=== PATIENT | female | born 1980 | race Caucasian/White ===

== ENCOUNTER 2017-11-11 12:10 | Inpatient (IN) | payer SELFPAY ==
[~2017-11-11] VITALS: Ht 157.5 cm; Wt 56.3 kg
[~2017-11-11 12:10] MED LIST: IBUP800T23 PO; METH750T2 PO
[2017-11-11 12:17] VITALS: BP 113/61; PULSE 120; RESP 18; TEMP 98.3; O2SAT 99
--- NOTE | 2017-11-11 12:27 | PD ---
HPI Chief Complaint: Psychiatric Symptoms Time Seen by Provider: 12:22 Travel History International Travel<30 days: No Contact w/Intl Traveler<30days: No Traveled to known affect area: No History of Present Illness HPI 37-year-old female presents to the emergency department under [place] act by local police. The patient states her name is Hellen Kingston". 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 She is alert and oriented to person, place, time. According the [place]ar act, she has been having bizarre behavior and threatening people. The patient states that her is with the neighbor next door and she wants him out which is why she has been acting the way she has. She denies any psychiatric history. She denies any suicidal or homicidal ideation. The patient is agitated and does not want to answer questions. She does deny any medical complaints at this time. She reports history of diabetes, states she is not on any medications. She denies any alcohol or drug use. She does state that she smokes "a lot". Moderate severity. PFSH Past Medical History Immunizations Current: Yes ?: Unknown Social History Alcohol Use: No Tobacco Use: Yes Substance Use: No Allergies-Medications (Allergen,Severity, Reaction): Coded Allergies: No Known Allergies (Unverified , 08/09/15) Reported Meds & Prescriptions Reported Meds & Active Scripts Active No Active Prescriptions or Reported Medications Review of Systems Except as stated in HPI: all other systems reviewed are Neg Physical Exam Narrative GENERAL: Well-nourished, well-developed female patient, ambulatory. Afebrile. SKIN: Focused skin assessment warm/dry. HEAD: Normocephalic. Atraumatic. EYES: No scleral icterus. No injection or drainage. NECK: Supple, trachea midline. No JVD or lymphadenopathy. CARDIOVASCULAR: Regular rhythm without murmurs, gallops, or rubs. Patient is tachycardic heart rate in the 110s. RESPIRATORY: Breath sounds equal bilaterally. No accessory muscle use. Lung sounds are clear to auscultation. GASTROINTESTINAL: Abdomen soft, non-tender, nondistended. MUSCULOSKELETAL: No cyanosis, or edema. PSYCHIATRIC: No hallucinations. 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 Otherwise , she answers questions appropriately. She does appear possibly under the influence. Data Data Last Documented VS Vital Signs Date Time Temp Pulse Resp B/P (MAP) Pulse Ox O2 Delivery O2 Flow Rate FiO2 11/11/17 13:54 117 11/11/17 12:17 98.3 18 113/61 (78) 99 Orders Orders Complete Blood Count With Diff (11/11/17 12:23) Comprehensive Metabolic Panel (11/11/17 12:23) Thyroid Stimulating Hormone (11/11/17 12:23) Ed Urine Pregnancytest Poc (11/11/17 12:23) Psych Screen (11/11/17 12:23) Drug Screen, Random Urine (11/11/17 12:23) Alcohol (Ethanol) (11/11/17 12:23) Labs Laboratory Tests Test 11/11/17 12:30 White Blood Count 11.8 TH/MM3 Red Blood Count 4.97 MIL/MM3 Hemoglobin 12.8 GM/DL Hematocrit 39.3 % Mean Corpuscular Volume 79.2 FL Mean Corpuscular Hemoglobin 25.8 PG Mean Corpuscular Hemoglobin Concent 32.6 % Red Cell Distribution Width 16.5 % Platelet Count 264 TH/MM3 Mean Platelet Volume 7.7 FL Neutrophils (%) (Auto) 84.9 % Lymphocytes (%) (Auto) 6.1 % Monocytes (%) (Auto) 8.0 % Eosinophils (%) (Auto) 0.4 % Basophils (%) (Auto) 0.6 % Neutrophils # (Auto) 10.0 TH/MM3 Lymphocytes # (Auto) 0.7 TH/MM3 Monocytes # (Auto) 0.9 TH/MM3 Eosinophils # (Auto) 0.1 TH/MM3 Basophils # (Auto) 0.1 TH/MM3 CBC Comment DIFF FINAL Differential Comment Blood Urea Nitrogen 9 MG/DL Creatinine 1.03 MG/DL Random Glucose 91 MG/DL Total Protein 8.1 GM/DL Albumin 4.3 GM/DL Calcium Level 9.2 MG/DL Alkaline Phosphatase 93 U/L Aspartate Amino Transf (AST/SGOT) 20 U/L Alanine Aminotransferase (ALT/SGPT) 18 U/L Total Bilirubin 0.6 MG/DL Sodium Level 136 MEQ/L Potassium Level 4.0 MEQ/L Chloride Level 103 MEQ/L Carbon Dioxide Level 20.5 MEQ/L Anion Gap 13 MEQ/L Estimat Glomerular Filtration Rate 60 ML/MIN Thyroid Stimulating Hormone 3rd Gen 0.933 uIU/ML Ethyl Alcohol Level LESS THAN 3 MG/DL MDM Medical Decision Making Medical Screen Exam Complete: Yes Emergency Medical Condition: Yes Medical Record Reviewed: Yes Differential Diagnosis Substance abuse versus bipolar disorder versus depression versus anxiety versus schizophrenia Narrative Course 37-year-old female presents to the emergency department under [place] act by local police. CBC, CMP, TSH, alcohol level, urine drug screen, urine test are ordered and pending. CBC shows slight leukocytosis 11.8. CMP shows no acute abnormality. TSH is 0.933. Alcohol level is less than 3. UDS, UPT are pending. Patient remains slightly tachycardic. Patient remains agitated. I do believe the tachycardia is due to agitation. Patient is medically cleared for psychiatric screening and disposition Diagnosis Primary Impression: Medical clearance for psychiatric admission Scripts No Active Prescriptions or Reported Meds Condition: Stable Micheline Caputo November 11, 2017 12:27
[2017-11-11 12:59] LABS: BASOPHIL # 0.1 TH/MM3 (0-0.2); BASOPHIL % 0.6 % (0.0-2.0); EOSINOPHIL # 0.1 TH/MM3 (0-0.4); EOSINOPHIL % 0.4 % (0.0-4.0); HEMATOCRIT 39.3 % (35.0-46.0); HEMOGLOBIN 12.8 GM/DL (11.6-15.3); LYMPH % 6.1 % (9.0-44.0); LYMPHOCYTE # 0.7 TH/MM3 (1.0-4.8); MEAN CELL VOLUME 79.2 FL (80.0-100.0); MEAN CORPUSCULAR HEMOGLOBIN 25.8 PG (27.0-34.0); MEAN CORPUSCULAR HGB CONC 32.6 % (32.0-36.0); MEAN PLATELET VOLUME 7.7 FL (7.0-11.0); MONOCYTE # 0.9 TH/MM3 (0-0.9); NEUT % 84.9 % (16.0-70.0); PLATELET COUNT 264 TH/MM3 (150-450); RED BLOOD COUNT 4.97 MIL/MM3 (4.00-5.30); RED CELL DISTRIBUTION WIDTH 16.5 % (11.6-17.2); WHITE BLOOD COUNT 11.8 TH/MM3 (4.0-11.0)
[2017-11-11 13:28] LABS: BLOOD UREA NITROGEN 9 MG/DL (7-18); CREATININE 1.03 MG/DL (0.50-1.00); GLOMERULAR FILTRATION RATE 60 ML/MIN (>89); GLUCOSE,RANDOM 91 MG/DL (74-106)
[2017-11-11 13:29] LABS: ALBUMIN 4.3 GM/DL (3.4-5.0); ALKALINE PHOSPHATASE 93 U/L (45-117); ALT (GPT) 18 U/L (10-53); AST (GOT) 20 U/L (15-37); BICARBONATE 20.5 MEQ/L (21.0-32.0); CALCIUM 9.2 MG/DL (8.5-10.1); CHLORIDE 103 MEQ/L (98-107); SODIUM (NA) 136 MEQ/L (136-145); TOTAL BILIRUBIN ADULT 0.6 MG/DL (0.2-1.0); TOTAL PROTEIN 8.1 GM/DL (6.4-8.2)
[2017-11-11 13:54] VITALS: PULSE 117
[2017-11-11 19:29] VITALS: BP 107/62; PULSE 128; TEMP 98.2; O2SAT 98
[2017-11-11] MEDS ORDERED: LORazepam 2 MG/ML VIAL IM ONE (21:00)
[2017-11-11] MEDS ORDERED: HALOPERIDOL LACTATE 5 MG/ML AMP IM ONE (21:00)
[2017-11-12 00:38] VITALS: BP 110/60; PULSE 84; RESP 18; TEMP 97
[2017-11-12 08:40] VITALS: BP 114/65; PULSE 102; RESP 20; TEMP 97.9; O2SAT 96
[2017-11-12] MEDS ORDERED: BENZTROPINE MESYLATE 2 MG/2 ML VIAL IM PRN (11:30)
[2017-11-12] MEDS ORDERED: MAGNESIUM HYDROXIDE SUSP 30 ML CUP PO PRN (11:30)
[2017-11-12] MEDS ORDERED: ALUMINUM/MAGNESIUM/SIMETH 30 ML CUP PO PRN (11:30)
[2017-11-12] MEDS ORDERED: BENZTROPINE MESYLATE 1 MG TAB PO PRN (11:30)
[2017-11-12] MEDS ORDERED: diphenhydrAMINE HCL 50 MG CAP PO PRN (11:30)
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
[2017-11-12 13:23] VITALS: BP 90/55; PULSE 92; RESP 18; TEMP 97.3; O2SAT 100
[2017-11-13 05:59] VITALS: PULSE 81; RESP 17; TEMP 98; O2SAT 98
[2017-11-13] MEDS: REMOVE OLD PATCH T-DERMAL SCH ×2 (08:10→08:19)
[2017-11-13] MEDS: NICOTINE 21 MG/24 HR PATCH T-DERMAL SCH (08:18)
[2017-11-13 09:28] LABS: AUTOMATED NEUTROPHIL # 4.5 TH/MM3 (1.8-7.7); BASOPHIL # 0.1 TH/MM3 (0-0.2); BASOPHIL % 1.2 % (0.0-2.0); EOSINOPHIL # 0.2 TH/MM3 (0-0.4); EOSINOPHIL % 3.5 % (0.0-4.0); HEMATOCRIT 39.2 % (35.0-46.0); LYMPH % 15.7 % (9.0-44.0); MEAN CELL VOLUME 80.2 FL (80.0-100.0); MEAN CORPUSCULAR HEMOGLOBIN 26.6 PG (27.0-34.0); MEAN CORPUSCULAR HGB CONC 33.2 % (32.0-36.0); MEAN PLATELET VOLUME 7.6 FL (7.0-11.0); MONO % 8.2 % (0.0-8.0); MONOCYTE # 0.5 TH/MM3 (0-0.9); NEUT % 71.4 % (16.0-70.0); PLATELET COUNT 245 TH/MM3 (150-450); RED BLOOD COUNT 4.89 MIL/MM3 (4.00-5.30); RED CELL DISTRIBUTION WIDTH 16.4 % (11.6-17.2); WHITE BLOOD COUNT 6.3 TH/MM3 (4.0-11.0)
[2017-11-13] MEDS: ACETAMINOPHEN 325 MG TAB PO PRN ×2 (09:46→18:47)
[2017-11-13 09:52] LABS: BICARBONATE 28.2 MEQ/L (21.0-32.0); BLOOD UREA NITROGEN 15 MG/DL (7-18); CALCIUM 8.7 MG/DL (8.5-10.1); CHLORIDE 104 MEQ/L (98-107); CREATININE 0.81 MG/DL (0.50-1.00); GLOMERULAR FILTRATION RATE 79 ML/MIN (>89); GLUCOSE,RANDOM 87 MG/DL (74-106); SODIUM (NA) 138 MEQ/L (136-145)
[2017-11-13 09:53] LABS: CHOLESTEROL 146 MG/DL (120-200)
[2017-11-13 09:55] LABS: CHOLESTEROL/ HDL RATIO 3.37 RATIO; HDL CHOLESTEROL 43.2 MG/DL (40.0-60.0); LDL CHOLESTEROL 89 MG/DL (0-99); TRIGLYCERIDES 69 MG/DL (42-150)
[2017-11-13 11:33] LABS: HEMOGLOBIN A1C 5.4 % (4.3-6.0)
--- NOTE | 2017-11-13 11:36 | PD.PSY.CON ---
Provisional Diagnosis Admission Date November 12, 2017 at 11:18 [place] I. 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 Amphetamine abuse [place] II. Deferred History of Present Illness Service Psychiatry Consult Requested By Psychiatry Reason for Consult 2nd Opinion Primary Care Physician No Primary Care Physician HPI Pt seen and discussed with staff. Chart reviewed. She was admitted to [facility] under a BA due to bizarre and aggressive behavior. Pt is disorganized and self care is poor. Staff report that pt presented with menses blood all over her hands and did not recognize it. "It was from sleeping". She is a very poor historian. M Past psychiatric history: Patient is likely an unreliable historian and provides no psychiatric history. Medical history: Poor historian, but denies medical problems. Chemical dependency history:Pt admits to using methamphetamine, one time. Social history: The patient lives with her paramour. She has 2 children from a different relationship. 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 She denies any access to guns or firearms. She denies any legal problems. Past Family Social History Coded Allergies: No Known Allergies (Unverified Allergy, Unknown, 11/12/17) No Active Prescriptions or Reported Meds Current Medications Medications (Trade) Dose Ordered Sig/Nay Route Start Time Stop Time Status Last Admin (Benadryl) 50 mg HS PRN PO 11/12/17 11:30 (Tylenol) 650 mg Q4H PRN PO 11/12/17 11:30 11/13/17 09:46 (Milk Of Magnesia Liq) 30 ml DAILY PRN PO 11/12/17 11:30 (Mag-Al Plus Susp Liq) 30 ml Q6H PRN PO 11/12/17 11:30 (Habitrol 21 Mg Patch.24 Hr) 1 patch DAILY T-DERMAL 11/12/17 12:00 11/13/17 08:18 (Cogentin) 1 mg Q12H PRN PO 11/12/17 11:30 (Cogentin Inj) 1 mg Q12H PRN IM 11/12/17 11:30 Miscellaneous Information 1 DAILY T-DERMAL 11/13/17 09:00 Patient's Strengths (min. 2) In a monitored setting. Verbally fluent. Physical Exam Vital Signs Vital Signs Date Time Temp Pulse Resp B/P (MAP) Pulse Ox O2 Delivery O2 Flow Rate FiO2 11/13/17 05:59 98.0 81 17 98 11/12/17 13:23 90/55 (67) 11/12/17 08:40 Room Air Lab Results Test 11/13/17 09:05 11/13/17 09:06 Blood Urea Nitrogen 15 MG/DL Creatinine 0.81 MG/DL Random Glucose 87 MG/DL Calcium Level 8.7 MG/DL Sodium Level 138 MEQ/L Potassium Level 4.2 MEQ/L Chloride Level 104 MEQ/L Carbon Dioxide Level 28.2 MEQ/L Anion Gap 6 MEQ/L Estimat Glomerular Filtration Rate 79 ML/MIN Triglycerides Level 69 MG/DL Cholesterol Level 146 MG/DL LDL Cholesterol 89 MG/DL HDL Cholesterol 43.2 MG/DL Cholesterol/HDL Ratio 3.37 RATIO White Blood Count 6.3 TH/MM3 Red Blood Count 4.89 MIL/MM3 Hemoglobin 13.0 GM/DL Hematocrit 39.2 % Mean Corpuscular Volume 80.2 FL Mean Corpuscular Hemoglobin 26.6 PG Mean Corpuscular Hemoglobin Concent 33.2 % Red Cell Distribution Width 16.4 % Platelet Count 245 TH/MM3 Mean Platelet Volume 7.6 FL Neutrophils (%) (Auto) 71.4 % Lymphocytes (%) (Auto) 15.7 % Monocytes (%) (Auto) 8.2 % Eosinophils (%) (Auto) 3.5 % Basophils (%) (Auto) 1.2 % Neutrophils # (Auto) 4.5 TH/MM3 Lymphocytes # (Auto) 1.0 TH/MM3 Monocytes # (Auto) 0.5 TH/MM3 Eosinophils # (Auto) 0.2 TH/MM3 Basophils # (Auto) 0.1 TH/MM3 CBC Comment DIFF FINAL Differential Comment Mental Status Examination Appearance: Disheveled Consciousness: Alert Orientation: Person, Place (Hospital), Date/Time (Month/year) Motor Activity: Normal gait Speech: Unremarkable Language: Other (Rambling) Fund of Knowledge: Inadequate Attention and Concentration: Easily Distracted Memory: Impaired (Psychosis interferes) Mood: Anxious Affect: Irritable, Labile Thought Process & Associations: Disorganized Thought Content: Bizarre thinking, Hallucinations Hallucination Type: Other (Appears internally preoccupied) Delusion Type: None Suicidal Ideation: No (Unreliable to contract for safety) Homicidal Ideation: No (Unreliable to contract for safety) Insight: Poor Judgment: Poor Assessment & Plan Problem List: (1) Brief psychotic disorder ICD Codes: F23 - Brief psychotic disorder (2) Amphetamine abuse ICD Codes: F15.10 - Other stimulant abuse, uncomplicated Assessment & Plan I agree that pt meets criteria for involuntary hospitalization due psychosis and self neglect. 2nd opinion paperwork completed. Estimated LOS: days Request HC Surrog/Guard Advoc?: Yes Nikole Rahman MD November 13, 2017 11:36
[2017-11-13 17:45] VITALS: BP 99/61; PULSE 87; RESP 17; TEMP 98; O2SAT 100
[2017-11-14 06:45] VITALS: BP 143/65; PULSE 60; RESP 18; TEMP 97.6; O2SAT 99
[2017-11-14] MEDS: REMOVE OLD PATCH T-DERMAL SCH (08:31)
[2017-11-14] MEDS: NICOTINE 21 MG/24 HR PATCH T-DERMAL SCH (08:31)
[2017-11-14] MEDS: ACETAMINOPHEN 325 MG TAB PO PRN (08:41)
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
== END 2017-11-14 13:20 | disposition home or self-care (01) | DRG 897 ==
LOC: NEPD 12:10 → NEDA 11-12 11:18 → H260 11-12 13:15 → H270 11-12 20:07
PROVIDERS: ADMIT Psychiatry & Neurology Psychiatry; ATTEND Psychiatry & Neurology Psychiatry
DX: F15.159 Other stimulant abuse with stimulant-induced psychotic disorder, unspecified (principal); F41.9 Anxiety disorder, unspecified; F17.210 Nicotine dependence, cigarettes, uncomplicated
CPT/HCPCS: 80048; 80053; 80061; 80307; 83036; 84443; 84703; 85025; 96372; J1630; J2060